=== PATIENT | male | born 1945 | race Caucasian/White ===

== ENCOUNTER 2017-07-04 09:37 | Outpatient (CLI) | payer MEDICARE, OTHER ==
--- NOTE | 2017-07-04 13:19 | RAD ---
EXAM: CHEST 2 VIEWS: HISTORY: Dyspnea. COMPARISON: 01/01/10. FINDINGS: Slight elongation of the aorta. Normal cardiac silhouette. Pulmonary vessels and hilum are normal. Costophrenic angles are clear. No consolidation or masses. No pneumothorax or osseous abnormalitie s. IMPRESSION: No acute cardiopulmonary process. POS: [facility]
== END 2017-07-04 09:38 | disposition home or self-care (01) ==
LOC: RAD 09:37
PROVIDERS: ATTEND Internal Medicine
DX: R06.00 Dyspnea, unspecified (principal)
CPT/HCPCS: 71020

== ENCOUNTER 2017-08-09 09:37 | Outpatient (CLI) | payer MEDICARE, OTHER ==
[2017-08-09] MEDS ORDERED: Iopamidol 370 76% 100 ML VIAL ONE (11:40)
--- NOTE | 2017-08-09 13:42 | CT ---
CT CHEST WITH CONTRAST: Clinical history: Cough, cardiac palpitations. FINDINGS: Mild subpleural opacification of the posterior left hemithorax favors minimal atelectasis. There is n o lobar consolidation, significant effusion, or pneumothorax. The tracheal bronchial air column is pa tent. There is vascular disease including dense coronary artery calcium. Mild pericardial fluid is pr esent. Thoracic lymph nodes are of normal size. Thoracic aorta is non-aneurysmal. Indeterminate hypod ensities seen at the left kidney. Incidental note of collateralized, contrast opacified vasculature o f the right periscapular region. There is osseous degenerative change. There is a tiny nodule which m ay arise from the left adrenal gland, too small to definitely characterize, on the magnitude of a few mm. IMPRESSION: 1. No lobar consolidation. 2. Hyperattenuation incompletely assessed involving left kidney as well as left adrenal region as dis cussed above. This could be further assessed with dedicated follow up CT of abdomen when clinically f easible. POS: [facility]
--- NOTE | 2017-08-17 15:36 | PFT ---
PATIENT HISTORY: HEIGHT: 68 IN WEIGHT: 229 SMOKER: Y HOW LON YRS PACKS PER DAY 1 PRODUCTIVE COUGH: LUNG DISEASE: PHYSICIAN INTERPRETATION FINAL REPORT: MILD REDUCTION OF EXPIRATORY FLOWS OF VITAL CAPACITY NO POST BRONCHODILATOR PFT DONE TOTAL LUNG CAPACITY LOW, RV NORMAL GAS TRANSFER IS NORMAL IMPRESSION: RESTRICTIVE PERMEABLE IMPAIRMENT NORMAL DIFFUSION CAPACITY Clip Wrapper: [employer] Specialist: FIGUEROA DOS SANTOS
== END 2017-08-09 09:38 | disposition home or self-care (01) ==
LOC: CP 09:37
PROVIDERS: ATTEND Internal Medicine
DX: R05 Cough (principal); R00.2 Palpitations; R93.8 Abnormal findings on diagnostic imaging of other specified body structures
CPT/HCPCS: 71260; 94010; 94727; 94729

== ENCOUNTER 2017-09-26 11:24 | Inpatient (IN) | payer MEDICARE, OTHER ==
[2017-09-26 11:47] LABS: #Basophils 0.1 thou/uL (0.0-0.2); #Eosinphils 0.1 thou/uL (0.0-0.7); #Lymphocytes 2.1 thou/uL (1.20-3.40); #Monocytes 0.5 thou/uL (0.11-0.59); #Neutrophils 5.2 thou/uL (1.40-6.50); %Basophils 0.9 % (0.0-1.0); %Eosinophils 0.9 % (0.0-10.0); %Lymphocytes 26.8 % (21.0-51.0); %Monocytes 6.1 % (0.0-10.0); %Neutrophils 65.3 % (42.0-75.0); Hemoglobin 15.8 g/dL (14.0-18.0); Mean Corpuscular Hemoglobin 31.6 pg (27.0-31.0); Mean Corpuscular Volume 98.9 fl (80.0-94.0); Mean Platelet Volume 7.9 fL (7.4-10.4); Platelet Count 151 thou/uL (130-400); RBC Distribution Width 13.1 % (11.5-14.5); Red Blood Cell (RBC) Count 4.99 mill/uL (4.70-6.10)
[2017-09-26 12:09] LABS: PTT 32.9 SEC (22.9-36.1)
[2017-09-26 12:10] LABS: INR-International Normal Ratio 1.2
[2017-09-26] MEDS ORDERED: Enoxaparin Sodium 100 MG/ML SYRINGE SC SCH ×2 (12:15→22:30)
[2017-09-26] MEDS ORDERED: Diltiazem HCl 125 MG, Admixture Fee 1 EACH in Sodium Chloride 0.9% 100 ML IVPB SCH (12:15)
[2017-09-26 12:16] LABS: ALT (SGPT) 41 U/L (8-55); AST (SGOT) 25 U/L (5-34); Albumin 4.1 g/dL (3.4-4.8); Alkaline Phosphatase 64 U/L (40-150); Anion Gap 11 mmol/L (10-20); BUN (Urea Nitrogen) 16 mg/dL (8.4-25.7); Bilirubin, Total 2.6 mg/dL (0.2-1.2); CK (CPK) 126 U/L (30-200); Calc. Creatinine Clearance 0 mL/min (70-130); Calcium 9.2 mg/dL (7.8-10.44); Carbon Dioxide 25 mmol/L (23-31); Chloride 109 mmol/L (98-107); Estimated GFR-MDRD Greater than 90; Globulin 2.7 g/dL (2.4-3.5); Glucose 103 mg/dL (83-110); Potassium 4.1 mmol/L (3.5-5.1); Protein, Total 6.8 g/dL (5.8-8.1); Sodium 141 mmol/L (136-145)
[2017-09-26 12:18] LABS: Troponin I Less than 0.010 ng/mL (< 0.028)
[2017-09-26] MEDS ORDERED: Enoxaparin Sodium 100 MG/ML SYRINGE ONE (12:27)
--- NOTE | 2017-09-26 12:42 | RAD ---
PORTABLE CHEST 1 VIEW: DATE: 09/26/17. TIME: 11:29 a.m. HISTORY: Tachycardia. FINDINGS: The heart size appears prominent. The lungs are expanded without confluent areas of consolidation, p neumothorax, kt pulmonary edema, or pleural effusions. No significant interval change is seen sin ce the exam of 07/04/17. IMPRESSION: No acute process. POS: [facility]
[2017-09-26] MEDS ORDERED: Bisacodyl 5 MG TAB PO PRN (15:25)
[2017-09-26] MEDS ORDERED: Acetaminophen 325 MG TAB PO PRN (15:25)
[2017-09-26 15:50] LABS: Troponin I 0.022 ng/mL (< 0.028)
[2017-09-26] MEDS ORDERED: Metoprolol Tartrate 5 MG/5 ML VIAL ONE (16:01)
[2017-09-26 16:07] LABS: CKMB 1.9 ng/mL (0-6.6); Troponin I Less than 0.010 ng/mL (< 0.028)
[2017-09-26] MEDS ORDERED: Digoxin 0.5 MG/2 ML AMP SLOW IVP SCH ×2 (16:30→17:00)
--- NOTE | 2017-09-26 18:00 | HP ---
PRIMARY CARE PHYSICIAN: SHANNON Vee. She is actually an advanced practitioner nurse. CHIEF COMPLAINT: Atrial fibrillation, rapid ventricular response. HISTORY OF PRESENT ILLNESS: Patient is a very pleasant 72-year-old male who was sent from Dr. Encarnacion 's office for atrial fibrillation with RVR. The patient stated that for the past couple of weeks, he has been feeling abdominal bloating, has been having some nausea and on occasion has felt his heartb eat go really fast; however, it lasted for about 10 to 15 minutes and goes back to his baseline. Marcelina thorpe stated that the palpitations he has been having for the past six months on and off; however, for the past 2 weeks, he has been having significant amount of abdominal bloating, discomfort, pain afte r eating and just increasing amount of palpitations. Patient denies any chest discomfort or chest pa in. He is able to carry out his normal activities without any issues. PAST MEDICAL HISTORY: Hyperlipidemia. MEDICATIONS: Aspirin 81 mg, Crestor, unknown dose daily. PAST SURGICAL HISTORY: None. ALLERGIES: None. FAMILY HISTORY: Mother had a bypass at the age of 70. Father had a stent placed in, I believe in th e age of 70s. Maternal grandmother at the age of 50s with heart disease. He has 3 brothers, wh ich are in good health. SOCIAL HISTORY: Patient drinks six cans ranging from 2-6 cans a day. He smokes a pack a day for the past 50 years. Denies any drug use. REVIEW OF SYSTEMS: Ten-point review of systems, all negative except for the one mentioned above. PHYSICAL EXAMINATION: VITAL SIGNS: The patient is afebrile at 98.8, blood pressure 125/60, his heart rate is still in the one teens to 120s to 140s, respirations are 12, and his oxygen saturation is 99% on room air. GENERAL: He is awake, alert, oriented x3. Does appear a little flush than his baseline according to his . CARDIOVASCULAR: Irregularly irregular, tachycardia right now. LUNGS: Clear to auscultation. No rhonchi, wheezes noted. ABDOMEN: Soft, nontender. Bowel sounds are present x2. However, abdomen is significantly obese. EXTREMITIES: No pitting edema noted. LABORATORY DATA: WBCs of 8.0, hemoglobin of 15.8, hematocrit of 49.3, platelets of 151. Sodium is 1 41, potassium of 4.1, creatinine of 0.81. His EKG shows in atrial fibrillation with RVR. Troponins are negative. TSH is 2.2. Chest x-ray: No acute process noted. ASSESSMENT AND PLAN: The patient is a very pleasant 72-year-old male who was sent from [facility] for being in atrial fibrillation with rapid ventricular response. 1. Atrial fibrillation with rapid ventricular response. Patient currently is on Cardizem 10 mg and received 20 mg IV bolus in the ER prior to starting the drip. His rate is still uncontrolled in the 140s to 150s. However, the patient is currently asymptomatic. The patient has been given 5 mg of Lo pressor without any change in his heart rate. We will digoxin load the patient. We will also check an echocardiogram. Of course, Dr. Encarnacion will be consulted. 2. Smoking. Patient was educated on smoking cessation. Denies use of nicotine patch. 3. Alcohol abuse. Patient drinks six cans ranging from 2-6 cans a day. Patient currently does not want to quit. 4. Abdominal bloating. We will try patient on Pepcid b.i.d.
[2017-09-26 18:41] VITALS: BMI 34.7
[2017-09-26 19:23] LABS: Troponin I Less than 0.010 ng/mL (< 0.028)
[2017-09-26] MEDS: Metoprolol Tartrate 25 MG TAB PO SCH (22:49)
[2017-09-26] MEDS: Famotidine/PF 20 mg/2ml Vial SLOW IVP SCH (22:49)
[2017-09-27 05:46] LABS: Eosinophils 2 % (0-10); Hemoglobin 14.4 g/dL (14.0-18.0); Lymphocytes 37 % (21-51); MDiff Complete? YES; Mean Corpuscular HGB CONC 31.3 g/dL (32.0-36.0); Mean Corpuscular Hemoglobin 32.4 pg (27.0-31.0); Mean Platelet Volume 8.9 fL (7.4-10.4); Monocytes 2 % (0-10); Neutrophil 59 % (42-75); Platelet Count 142 thou/uL (130-400); RBC Distribution Width 13.3 % (11.5-14.5); Red Blood Cell (RBC) Count 4.45 mill/uL (4.70-6.10); White Blood Cell (WBC) Count 8.7 thou/uL (4.8-10.8)
[2017-09-27 05:53] LABS: ALT (SGPT) 34 U/L (8-55); AST (SGOT) 22 U/L (5-34); Albumin 3.7 g/dL (3.4-4.8); Alkaline Phosphatase 59 U/L (40-150); Anion Gap 9 mmol/L (10-20); BUN (Urea Nitrogen) 16 mg/dL (8.4-25.7); Bilirubin, Total 2.4 mg/dL (0.2-1.2); Calc. Creatinine Clearance 124 mL/min (70-130); Calcium 8.7 mg/dL (7.8-10.44); Carbon Dioxide 23 mmol/L (23-31); Chloride 108 mmol/L (98-107); Estimated GFR-MDRD Greater than 90; Globulin 2.5 g/dL (2.4-3.5); Glucose 107 mg/dL (83-110); Protein, Total 6.2 g/dL (5.8-8.1); Sodium 136 mmol/L (136-145)
[2017-09-27] MEDS: Metoprolol Tartrate 25 MG TAB PO SCH (08:32)
[2017-09-27] MEDS: Enoxaparin Sodium 100 MG/ML SYRINGE SC SCH ×2 (08:32→22:40)
[2017-09-27] MEDS ORDERED: Prevnar 13-Val Conj/PF 0.5 ML SYRINGE IM ONE (09:00)
[2017-09-27] MEDS ORDERED: Metoprolol Tartrate 25 MG TAB PO SCH ×2 (09:00→09:30)
--- NOTE | 2017-09-27 09:41 | PRG ---
DATE OF SERVICE: 09/27/2017 SUBJECTIVE: Mr. Montes is doing okay today. No chest pain or pressure. His heart rate is still fa st at about 130 beats a minute. OBJECTIVE: LUNGS: Clear. CARDIAC: Irregularly irregular. ABDOMEN: Soft, nontender. EXTREMITIES: No edema. SKIN: Warm and dry. LABORATORY DATA: Reviewing the tests, the echocardiogram is pending. On chest x-ray, the heart size looks enlarged. There is no pulmonary edema. The cardiac enzymes peaked 0.022 all normal. Bilirubin was high at 2.6. ASSESSMENT: Atrial fibrillation with a rapid ventricular response, difficult to control the rate. PLAN: 1. Increase beta blockers. 2. Echocardiogram. 3. Proceed to a transesophageal echo and cardioversion tomorrow, still in fibrillation which is like ly he will be. Discussed including injuring the mouth and teeth, stroke, heart attack. He understan ds and wishes to proceed. He understands also that living in fibrillation long-term would not be a g ood option, as it is very difficult to control his rate. There is also a risk of fibrillation causin g strokes if we leave him in fibrillation. The long-term risk of stroke we will be mostly reduced by the anticoagulation.
[2017-09-27] MEDS ORDERED: Lorazepam 2 MG/ML VIAL SLOW IVP PRN (11:15)
[2017-09-27] MEDS: Famotidine/PF 20 mg/2ml Vial SLOW IVP SCH ×2 (11:33→22:40)
--- NOTE | 2017-09-27 12:04 | PDOC.PN ---
- Subjective Encounter Start Date: 09/27/17 Encounter Start Time: 12:03 CC: AFIB Sub: pt still c/o palpitations - Objective Resuscitation Status: Resuscitation Status FULL:Full Resuscitation Vital Signs & Weight: Vital Signs (12 hours) Temp Pulse Resp BP Pulse Ox 09/27/17 04:00 97.8 F 81 18 109/69 93 L Weight Weight 230 lb 14.4 oz I&O: 09/26/17 09/27/17 09/28/17 06:59 06:59 06:59 Intake Total 892 Output Total 200 Balance 692 Result Diagrams: 09/27/17 04:25 09/27/17 04:25 Phys Exam - Physical Examination Constitutional: NAD HEENT: moist MMs Neck: no nodes Respiratory: no wheezing, no rales, clear to auscultation bilateral Cardiovascular: no significant murmur, no rub, irregular positive tachy Gastrointestinal: soft, non-tender no guarding Musculoskeletal: no edema Neurological: non-focal, moves all 4 limbs Psychiatric: normal affect Skin: no rash Dx/Plan - Plan Pt is 72 yrs old male now admitted to hospital due to afib rvr 1. AFIB RVR: Cardio on board Monitor HR closely JUSTUS & Cardioversion today per cardi 2. H/O Alcohol abuse: will start thiamine, folic acid PRNB ativant 3. Nicotine abuse: PRN nicotine patch 4. Pain: PRN pain meds case d/w pt & RN
[2017-09-27] MEDS: Nicotine 14 MG PATCH TOP SCH (13:15)
[2017-09-27] MEDS: Diltiazem HCl 125 MG, Admixture Fee 1 EACH in Sodium Chloride 0.9% 100 ML IVPB SCH (13:15)
[2017-09-27] MEDS: Metoprolol Tartrate 50 MG TAB PO SCH ×2 (13:16→22:40)
[2017-09-27] MEDS: Amiodarone 200 MG TAB PO SCH ×2 (15:12→22:40)
[2017-09-27] MEDS: Multivitamins, Adult 10 ML, Folic Acid 1 MG, Thiamine HCl 100 MG in Dextrose 5 %-0.45 %... IV SCH ×4 (16:09)
[2017-09-28] MEDS: Diltiazem HCl 125 MG, Admixture Fee 1 EACH in Sodium Chloride 0.9% 100 ML IVPB SCH (00:34)
[2017-09-28] MEDS ORDERED: Ondansetron ODT 4 MG TAB PO PRN (06:30)
[2017-09-28] MEDS: Famotidine/PF 20 mg/2ml Vial SLOW IVP SCH (08:32)
[2017-09-28] MEDS: Amiodarone 200 MG TAB PO SCH ×3 (08:32→20:50)
[2017-09-28] MEDS: Metoprolol Tartrate 50 MG TAB PO SCH ×2 (08:32→20:50)
[2017-09-28] MEDS: Enoxaparin Sodium 100 MG/ML SYRINGE SC SCH ×2 (08:32→20:50)
[2017-09-28] MEDS ORDERED: Diltiazem HCl 125 MG, Admixture Fee 1 EACH in Sodium Chloride 0.9% 100 ML IVPB SCH ×2 (09:27→09:45)
--- NOTE | 2017-09-28 09:38 | PRG ---
DATE OF SERVICE: 09/28/2017 SUBJECTIVE: Mr. Montes is feeling better today, no chest pain or pressure. His heart rate is duarte r controlled, it is in the 90s now. PHYSICAL EXAMINATION: LUNGS: Clear. CARDIAC: Irregular, irregular. ABDOMEN: Soft, nontender. EXTREMITIES: There is no edema. Echocardiogram showed ejection fraction 25-30%. ASSESSMENT: 1. Congestive heart failure, systolic, likely acute on chronic, likely related to prolonged tachycar dorie. 2. Persistent atrial fibrillation, rate is beginning to improve. PLAN: 1. Reduce Cardizem dose. 2. Proceed to transesophageal echo and cardioversion tomorrow morning. I discussed risks including injury to the teeth, need for pacemaker insertion, stroke. He understands and wishes to proceed.
[2017-09-28] MEDS: Multivitamins, Adult 10 ML, Folic Acid 1 MG, Thiamine HCl 100 MG in Dextrose 5 %-0.45 %... IV SCH ×4 (12:02)
[2017-09-28] MEDS: Nicotine 14 MG PATCH TOP SCH (12:02)
--- NOTE | 2017-09-28 15:24 | PDOC.PN ---
- Subjective Encounter Start Date: 09/28/17 Encounter Start Time: 15:26 Subjective: Asymptomatic. No complaints. -: No acute events overnight. - Objective Resuscitation Status: Resuscitation Status FULL:Full Resuscitation MAR Reviewed: Yes Vital Signs & Weight: Vital Signs (12 hours) Temp Pulse Resp BP Pulse Ox 09/28/17 15:18 97.2 F L 98 14 118/87 91 L 09/28/17 11:03 97.6 F 89 14 144/70 H 90 L 09/28/17 08:00 97.8 F 116 H 16 90 L 09/28/17 07:56 97.8 F 116 H 16 146/77 H 90 L Weight Weight 230 lb 14.4 oz I&O: 09/27/17 09/28/17 09/29/17 06:59 06:59 06:59 Intake Total 892 2115 Output Total 200 200 Balance 692 1915 Result Diagrams: 09/27/17 04:25 09/27/17 04:25 Phys Exam - Physical Examination Constitutional: NAD HEENT: PERRLA, moist MMs, sclera anicteric Neck: no JVD, supple, full ROM Respiratory: no wheezing, no rales, no rhonchi, clear to auscultation bilateral Cardiovascular: no significant murmur, no rub, irregular Gastrointestinal: soft, non-tender, no distention, positive bowel sounds Musculoskeletal: pulses present, edema present Neurological: non-focal, moves all 4 limbs Psychiatric: normal affect, A&O x 3 Skin: no rash, normal turgor Dx/Plan (1) Atrial fibrillation with RVR Code(s): I48.91 - UNSPECIFIED ATRIAL FIBRILLATION Status: Acute Comment: Fairly well rate controlled. JUSTUS today and then cardioversion tomorrow. Continue metoprolol, wean off Diltiazem. (2) Alcohol abuse Code(s): F10.10 - ALCOHOL ABUSE, UNCOMPLICATED Status: Chronic Comment: Counseled on cessation. No signs of withdrawal. (3) Tobacco abuse Code(s): Z72.0 - TOBACCO USE Status: Acute Comment: Counseled on cessation. - Plan cont current plan of care * .
[2017-09-28] MEDS ORDERED: Promethazine HCl 25 MG/ML VIAL IM/IV PRN (16:50)
[2017-09-28] MEDS: Famotidine 20 MG TAB PO SCH (20:50)
[2017-09-29 00:24] LABS: Hemoglobin 14.5 g/dL (14.0-18.0); Platelet Count 126 thou/uL (130-400)
[2017-09-29] MEDS: Amiodarone 200 MG TAB PO SCH ×3 (08:02→20:48)
[2017-09-29] MEDS: Rosuvastatin 10 MG TAB PO SCH (08:02)
[2017-09-29] MEDS: Metoprolol Tartrate 50 MG TAB PO SCH (08:02)
[2017-09-29] MEDS: Famotidine 20 MG TAB PO SCH ×2 (08:02→20:48)
[2017-09-29] MEDS: Enoxaparin Sodium 100 MG/ML SYRINGE SC SCH ×2 (08:03→20:48)
[2017-09-29] MEDS: Aspirin 81 mg Enteric Coated Tablet PO SCH (08:03)
[2017-09-29] MEDS ORDERED: Diprivan 20 ML ONE (09:34)
[2017-09-29] MEDS ORDERED: PHENYLEPHRINE-NS 100 MCG/ML 10 ML SYRINGE ONE ×2 (10:11→16:59)
--- NOTE | 2017-09-29 10:56 | OP ---
DATE OF PROCEDURE: 09/29/2017 PROCEDURE PERFORMED: Cardioversion. INDICATION: Atrial fibrillation. DESCRIPTION OF PROCEDURE: The patient was brought to the post-cath area in the fasting state. Trans esophageal echo revealed no evidence of intracardiac thrombus. The patient was given 150 joules of d irect current energy synchronized and converted to sinus rhythm. CONCLUSION: Successful cardioversion.
--- NOTE | 2017-09-29 11:08 | ECHO ---
TRANSESOPHAGEAL ECHOCARDIOGRAM: DATE OF PROCEDURE: 09/29/17 INDICATION: 72-year-old gentleman with paroxysmal atrial fibrillation and a cardiomyopathy. DESCRIPTION OF PROCEDURE: The patient was taken to the PACU. The patient was sedated by anesthesiology. A transesophageal probe was placed in the distal esophagus and stomach. Echocardiographic images were obtained. The transesophageal probe was removed. FINDINGS: 1. Severe decrease in left systolic function. 2. The left ventricle is dilated. 3. Biatrial enlargement 4. Moderate mitral regurgitation. 5. Mild tricuspid regurgitation. 6. No thrombus in the left atrium or left atrial appendage. 7. Atherosclerotic debris in the descending aorta. IMPRESSION: No formed thrombus in the left atrium or left atrial appendage.
[2017-09-29] MEDS: Nicotine 14 MG PATCH TOP SCH (12:06)
[2017-09-29] MEDS: Multivitamins, Adult 10 ML, Folic Acid 1 MG, Thiamine HCl 100 MG in Dextrose 5 %-0.45 %... IV SCH ×4 (12:06)
--- NOTE | 2017-09-29 13:20 | PDOC.PN ---
- Subjective Encounter Start Date: 09/29/17 Encounter Start Time: 13:19 Subjective: Feels wel today. No acute events overnight - Objective Resuscitation Status: Resuscitation Status FULL:Full Resuscitation MAR Reviewed: Yes Vital Signs & Weight: Vital Signs (12 hours) Temp Pulse Resp BP Pulse Ox 09/29/17 11:39 97.7 F 61 16 100/67 98 09/29/17 08:00 97.5 F L 94 16 90 L 09/29/17 07:49 97.5 F L 94 16 126/83 90 L 09/29/17 04:00 104 H 20 116/89 92 L Weight Weight 232 lb I&O: 09/28/17 09/29/17 09/30/17 06:59 06:59 06:59 Intake Total 2115 2317.3 Output Total 200 400 Balance 1915 1917.3 Result Diagrams: 09/29/17 00:17 09/29/17 00:17 Phys Exam - Physical Examination Constitutional: NAD HEENT: PERRLA, moist MMs, sclera anicteric Neck: supple, full ROM Respiratory: no wheezing, no rales, no rhonchi, clear to auscultation bilateral Cardiovascular: RRR, no significant murmur, no rub Gastrointestinal: soft, non-tender, no distention, positive bowel sounds Musculoskeletal: no edema, pulses present Neurological: non-focal, moves all 4 limbs Psychiatric: normal affect, A&O x 3 Skin: no rash, normal turgor Dx/Plan (1) Atrial fibrillation with RVR Code(s): I48.91 - UNSPECIFIED ATRIAL FIBRILLATION Status: Acute Comment: Fairly well rate controlled. JUSTUS today and then cardioversion. Continue metoprolol. (2) Alcohol abuse Code(s): F10.10 - ALCOHOL ABUSE, UNCOMPLICATED Status: Chronic Comment: Counseled on cessation. No signs of withdrawal. (3) Tobacco abuse Code(s): Z72.0 - TOBACCO USE Status: Acute Comment: Counseled on cessation. - Plan cont current plan of care, DVT proph w/lovenox Likely discharge home tomorrow. * .
[2017-09-29] MEDS: Carvedilol 6.25 MG TAB PO SCH (16:03)
[2017-09-29] MEDS ORDERED: Propofol 200 MG/20 ML VIAL ONE (16:59)
[2017-09-30 07:37] VITALS: BP 121/77; TEMP 98.2
[2017-09-30] MEDS: Carvedilol 6.25 MG TAB PO SCH (08:07)
[2017-09-30] MEDS: Famotidine 20 MG TAB PO SCH (08:07)
[2017-09-30] MEDS: Aspirin 81 mg Enteric Coated Tablet PO SCH (08:07)
[2017-09-30] MEDS: Amiodarone 200 MG TAB PO SCH (08:07)
[2017-09-30] MEDS: Rosuvastatin 10 MG TAB PO SCH (08:07)
[2017-09-30] MEDS: Enoxaparin Sodium 100 MG/ML SYRINGE SC SCH (08:08)
[2017-09-30] MEDS ORDERED: Lisinopril 5 MG TAB PO SCH (09:00)
[2017-09-30] MEDS ORDERED: Amiodarone 200 MG TAB PO SCH (09:00)
[2017-09-30] MEDS ORDERED: Lisinopril 2.5 MG TAB PO SCH ×2 (09:00)
--- NOTE | 2017-09-30 09:31 | PRG ---
DATE OF SERVICE: 09/30/2017 SUBJECTIVE: Mr. Montes is feeling better today, no complaints. He is up and around. No chest pain or pressure. PHYSICAL EXAMINATION: VITAL SIGNS: Blood pressure 120/70, pulse 70 it is regular. LUNGS: Clear. CARDIAC: Normal S1, normal S2. ABDOMEN: Soft, nontender. EXTREMITIES: There is mild edema. PERTINENT LABORATORY DATA: Most recent potassium was 4.0. Bilirubin on admission was 2.6, it went t o 2.4 on the . The patient maintains sinus rhythm. Echocardiogram revealed ejection fraction improved to 35-40%. T here is moderate right ventricular enlargement, probably related to smoking, lung disease. ASSESSMENT: 1. Congestive heart failure, systolic, acute on chronic, improved. 2. Atrial fibrillation, maintaining sinus rhythm, on amiodarone. PLAN: 1. He is to go to home on Coreg 12.5 mg twice daily. 2. Amiodarone 200 mg twice a day for 2 weeks, then 200 mg 1 a day. 3. Eliquis 5 mg twice a day. 4. Stop aspirin. He bit his lips. He is having some oozing from his lips. 5. Lisinopril 5 mg a day. 6. Spironolactone 25 mg tablet half pill a day, dose to be increased later if tolerated. 7. He is also on Crestor. It is best to see us is in the office in a week. If he is doing well and his potassium is okay, I would probably increase the spironolactone to 25 mg a day. Long-term progn osis is guarded. He understands it is critical not to smoke.
--- NOTE | 2017-09-30 14:38 | DIS ---
DATE OF ADMISSION: 09/26/2017 DATE OF DISCHARGE: 09/30/2017 DISCHARGE DIAGNOSES: Atrial fibrillation with rapid ventricular response, alcohol abuse, tobacco abu se. HISTORY OF PRESENT ILLNESS/HOSPITAL COURSE: Mr. Simon Regan is a pleasant 72-year-old male who was sent from Dr. Encarnacion's office for atrial fibrillation with RVR. For the past 2 weeks, he wa s having abdominal bloating, nausea and occasional palpitations lasting for about 10-15 minutes and r eturning to his baseline. This has been going on for the past 6 months, but has been getting worse o f late. He denies chest discomfort or pain and he is able to carry out his usual activities without any issues. He was found to be profoundly tachycardic and EKG showed atrial fibrillation with RVR. He was immediately started on IV Cardizem and admitted for further management. Cardiology and Cardio vascular Surgery was consulted. He had a TTE and JUSTUS, which did not show any thrombus. An ablation was then proceeded, which was successful with the patient going back to normal sinus rhythm with a no rmal heart rate. He was discharged on Eliquis, carvedilol, lisinopril, statins and his other home me dications. PHYSICAL EXAMINATION: VITAL SIGNS: Temperature 98.2, pulse 72, respiratory rate 18, blood pressure 121/77. GENERAL: Not in acute distress, sitting comfortably in bed. HEENT: PERRLA. Moist mucous membrane. Not pale. Sclerae are anicteric. NECK: Supple with full range of movement. RESPIRATORY: No wheezing, rales or rhonchi. Clear to auscultation bilaterally. CARDIOVASCULAR: Regular rate and rhythm. No murmurs, rubs or gallops. GASTROINTESTINAL: Soft, nontender, nondistended with positive bowel sounds and no organomegaly. MUSCULOSKELETAL: No edema. Pulses present. NEUROLOGIC: Nonfocal. Moves all limbs spontaneously. Alert and oriented to time, place and person. PSYCHIATRIC: Normal mood and affect. SKIN: Warm and well perfused. No rashes or lesions. LABORATORY DATA: WBC 8.7, hemoglobin 14.5, platelet count 142,000. Sodium 136, potassium 4, chlorid e 108, carbon dioxide 23, anion gap 9, BUN 16, creatinine 0.81, glucose 107, calcium 8.7. IMAGING: TTE, JUSTUS, chest x-ray showed no acute process. PROCEDURES: Cardioversion. DIET: Heart healthy. CONSULT: Cardiology. DISCHARGE MEDICATIONS: Amiodarone 200 mg 3 times daily, carvedilol 12.5 mg twice a day, nicotine pat ch 14 mg every 24 hours, amiodarone, apixaban 5 mg twice daily, lisinopril 5 mg daily, spironolactone 12.5 mg every morning with breakfast, lovastatin 10 mg daily, aspirin 81 mg daily. CONDITION AT DISCHARGE: Stable and improved. ACTIVITY: To resume as tolerated. HEALTH CARE GOALS: He is to follow up with his primary care physician within 1 week of discharge. Discharge time, 65 minutes including chart review and documentation.
[2017-09-30] MEDS ORDERED: Apixaban 5 MG TAB PO SCH (18:00)
[2017-10-01] MEDS ORDERED: Spironolactone 25 MG TAB PO SCH (08:00)
== END 2017-09-30 10:32 | disposition home or self-care (01) | DRG 308 ==
LOC: ERS 11:24 → ERHOLD 14:49 → 2NO 18:11
PROVIDERS: ADMIT Internal Medicine; ATTEND Internal Medicine
PROC: 5A2204Z Restoration of Cardiac Rhythm, Single (ICD-10-PCS; principal; 2017-09-29)
DX: I48.1 Persistent atrial fibrillation (principal); I50.23 Acute on chronic systolic (congestive) heart failure; E78.5 Hyperlipidemia, unspecified; F17.210 Nicotine dependence, cigarettes, uncomplicated; F10.10 Alcohol abuse, uncomplicated; R14.0 Abdominal distension (gaseous); Z79.82 Long term (current) use of aspirin; Z79.899 Other long term (current) drug therapy
CPT/HCPCS: 36415; 71045; 80053; 82553; 82565; 84443; 84484; 85007; 85014; 85018; 85025; 85027; 85049; 85610; 85730; 90471; 90670; 92960; 93005; 93306; 93312; 96365; 96366; 96372; 96375; 96376; A4216; G0009; J1650; J2060; J2550; J2704; J3411; J7042; J7050; Q0162; S0028

== ENCOUNTER 2017-10-05 10:04 | Inpatient (IN) | payer MEDICARE, OTHER ==
--- NOTE | 2017-10-05 10:54 | RAD ---
CHEST 1 VIEW: HISTORY: Chest pain. COMPARISON: Chest radiograph 09/26/17. FINDINGS: Mild pulmonary venous congestion. Cardiomegaly. Well-defined density is present projecting over the right lower lobe. IMPRESSION: 1. Cardiomegaly. 2. Mild pulmonary venous congestion. 3. Nodular density projecting in the right lung base new from the 09/08/[address] This may r epresent a focal areas of consolidation. Followup recommended. POS: [facility]
[2017-10-05 10:57] LABS: #Eosinphils 0.1 thou/uL (0.0-0.7); #Lymphocytes 0.8 thou/uL (1.20-3.40); #Monocytes 0.4 thou/uL (0.11-0.59); %Lymphocytes 14.9 % (21.0-51.0); %Monocytes 8.1 % (0.0-10.0); Hemoglobin 14.9 g/dL (14.0-18.0); Mean Corpuscular HGB CONC 32.4 g/dL (32.0-36.0); Mean Corpuscular Hemoglobin 31.3 pg (27.0-31.0); Mean Corpuscular Volume 96.4 fl (80.0-94.0); Mean Platelet Volume 7.6 fL (7.4-10.4); Platelet Count 134 thou/uL (130-400); Red Blood Cell (RBC) Count 4.77 mill/uL (4.70-6.10); White Blood Cell (WBC) Count 5.3 thou/uL (4.8-10.8)
[2017-10-05 11:18] LABS: ALT (SGPT) 53 U/L (8-55); AST (SGOT) 32 U/L (5-34); Albumin 3.8 g/dL (3.4-4.8); Alkaline Phosphatase 61 U/L (40-150); Anion Gap 10 mmol/L (10-20); BUN (Urea Nitrogen) 12 mg/dL (8.4-25.7); Bilirubin, Total 1.6 mg/dL (0.2-1.2); Calc. Creatinine Clearance 0 mL/min (70-130); Calcium 9.2 mg/dL (7.8-10.44); Carbon Dioxide 29 mmol/L (23-31); Chloride 106 mmol/L (98-107); Estimated GFR-MDRD Greater than 90; Globulin 2.5 g/dL (2.4-3.5); Glucose 109 mg/dL (83-110); Potassium 3.8 mmol/L (3.5-5.1); Protein, Total 6.3 g/dL (5.8-8.1); Sodium 141 mmol/L (136-145)
[2017-10-05 11:23] LABS: CKMB 1.6 ng/mL (0-6.6); Troponin I Less than 0.010 ng/mL (< 0.028)
[2017-10-05] MEDS ORDERED: Diltiazem HCl 125 MG, Admixture Fee 1 EACH in Sodium Chloride 0.9% 100 ML IVPB SCH (13:30)
--- NOTE | 2017-10-05 14:03 | HP ---
PRIMARY CARE PROVIDER: Dr. Tatiana Mckeon CHIEF COMPLAINT: Patient referred to [facility] for palpitations. HISTORY OF PRESENT ILLNESS: The patient was recently in the hospital for atrial fibrillation, was ca rdioverted on 10/05/2017, was discharged from the hospital in sinus rhythm on loading dose of amiodar one. Last night he noticed palpitations. He has had no change in his basic shortness of breath. No orthopnea, no paroxysmal nocturnal dyspnea. No cough, fever or chills. PAST MEDICAL HISTORY: Atrial fibrillation, acute onset 09/25/2017, dyslipidemia, cardiomyopathy with an EF of 25-30%. CURRENT MEDICATIONS: He has been taking amiodarone 200 mg twice a day. There is some confusion whet her it should be 2 or 3 times a day, Coreg 12.5 mg twice a day, Eliquis 5 mg twice a day, lisinopril 5 mg a day, spironolactone 12.5 mg a day, Crestor 10 mg a day. ALLERGIES: No known drug allergies. PAST SURGICAL HISTORY: None. FAMILY HISTORY: Mother had a bypass at age 70. Father had a stent placed at about age 70. Maternal grandmother at age 50 of heart disease. He has 3 brothers who are all in good health. SOCIAL HISTORY: He drinks up to 6 cans of beer a day. He smokes a pack a day for the past 50 years. Denies drug abuse. CODE STATUS: Full code status. at bedside, next of kin. REVIEW OF SYSTEMS: GENERAL: No headaches, dizziness or fainting. EYES: No double vision, blurred vision, flashing lights. ENT: No ear pain or drainage. No nasal bleeding. No trouble swallowing. CARDIAC: No chest pain, orthopnea or paroxysmal nocturnal dyspnea. RESPIRATORY: Some stable dyspnea on exertion. No cough or wheezing. GASTROINTESTINAL: No nausea, vomiting, abdominal pain, diarrhea or constipation. GENITOURINARY: No hematuria, dysuria. He states he did have some frequency last night. MUSCULOSKELETAL: Some mild swelling in his legs. No pain. NEUROLOGIC: No strokes, seizures, focal weakness. PSYCHIATRIC: No anxiety or depression. SKIN: No bruising, bleeding or rash. HEME/LYMPH: No tender or swollen lymph nodes in axilla, inguinal or cervical area. PHYSICAL EXAMINATION: GENERAL: He is an alert, oriented, cooperative, does not make eye contact. VITAL SIGNS: Blood pressure ranges from 109/78 to 133/105, pulse ranges from 100 to 136. The last t ann I examined him a few minutes ago it was 117 and irregular, respirations 20. He is on a room air with 93% saturation. HEENT: Examination of his head, eyes, ears, nose and throat reveal pupils equal, round, reactive. E xtraocular movements are intact. Sclerae white. Tympanic membranes clear. Nose is clear. Oral muc ous membranes are wet. Dental hygiene is good. NECK: Supple, without jugular venous distention, adenopathy or thyromegaly. CHEST: Some very minimal expiratory wheezes, some decreased breath sounds. No focal findings. HEART: Rapid irregular, irregular rhythm, variable first and second heart sounds, no murmurs or gall ops. ABDOMEN: Soft, bowel sounds are normal. No hepatosplenomegaly, no mass, no rebound. EXTREMITIES: Reveal no cyanosis, clubbing or edema. PULSES: Carotid, radial, femoral, and dorsalis pedis pulses are intact. SKIN: Warm and dry without bruises or rash. HEME/LYMPHATIC: No tender or swollen lymph nodes in axilla, inguinal or cervical area. NEUROLOGICAL: Cranial nerves II-XII are intact. Moves all extremities. Deep tendon reflexes intact . X-RAY FINDINGS: EKG atrial fibrillation with rapid ventricular response, nonspecific T-wave abnormal ity, reviewed by me. Chest x-ray: No cardiomegaly or pulmonary edema. There is an area in the righ t lower lobe with patchy density not previously seen. LABORATORY DATA: Comp metabolic profile normal except for a bilirubin of 1.6, troponin 0.010. BNP 7 66. CBC is unremarkable. ADMITTING DIAGNOSES: 1. Recurrent atrial fibrillation with rapid ventricular response. 2. Cardiomyopathy. 3. Tobacco abuse. 4. Dyslipidemia. PLAN: Continue Eliquis, 15 mg of IV Cardizem has been given. He has been put on an infusion at 5. He will be moved to telemetry. His home medicines will be continued. Dr. Jeovanny Encarnacion will be cons ulted.
[2017-10-05 14:24] LABS: Troponin I Less than 0.010 ng/mL (< 0.028)
[2017-10-05] MEDS ORDERED: Acetaminophen 325 MG TAB PO PRN (14:37)
[2017-10-05] MEDS ORDERED: Ondansetron HCl/PF 4 MG/2 ML Vial IVP PRN (14:37)
[2017-10-05] MEDS ORDERED: Zolpidem Tartrate 5 MG TAB PO PRN (14:37)
[2017-10-05 15:03] VITALS: BMI 33.2
--- NOTE | 2017-10-05 16:25 | CON ---
DATE OF CONSULTATION: 10/05/2017 PRIMARY BRAZER FURNACE: Dr. Jeovanny Encarnacion. REASON FOR CONSULTATION: Recurrent atrial fibrillation. HISTORY OF PRESENT ILLNESS: Mr. Montes is a very pleasant 72-year-old gentleman who is a patient of Dr. Jeovanny Encarnacion. He was seen and evaluated for a cardioversion last week. He has been on amiodar one therapy in addition to Eliquis. He states he was cardioverted then over the weekend noticed his heart was elevated. He had no symptoms of chest pain, pressure, shortness of breath, lightheadedness , dizziness, syncope, or presyncope. He proceed to the emergency room where his heart rate is felt t o be elevated. He was subsequently admitted and placed on IV Cardizem. PAST MEDICAL HISTORY: Atrial fibrillation, hyperlipidemia, cardiomyopathy with LVEF 25% to 30%. ALLERGIES: None. FAMILY HISTORY: Positive for CAD. SOCIAL HISTORY: Positive alcohol use and smoking, no drug use. MEDICATIONS: Include amiodarone, Eliquis, Crestor, Coreg, lisinopril, spironolactone. REVIEW OF SYSTEMS: A 10-point review of systems is reviewed and is as above, negative. PHYSICAL EXAMINATION: VITAL SIGNS: Blood pressure is 137/101, pulse 119, temperature 98.2. GENERAL: Patient is a pleasant male who is in no acute distress. The patient appears his stated age . NEUROLOGIC: The patient is alert and oriented times 3 with no focal neurologic deficits. HEENT: Sclerae without icterus. Mouth has moist mucous membranes with normal pallor. NECK: No JVD. Carotid upstroke brisk. No bruits bilaterally. LUNGS: Clear to auscultation with unlabored respirations. BACK: No scoliosis or kyphosis. CARDIAC: Irregular regular. ABDOMEN: Soft, nontender, nondistended. No peritoneal signs present. No hepatosplenomegaly. No ab normal striae. EXTREMITIES: 2+ femoral and 2+ dorsalis pedis pulses. No cyanosis, clubbing, or edema. SKIN: No gross abnormalities. PERTINENT LABORATORY DATA: Hemoglobin 14.9, total bilirubin 1.6. BNP of 766. IMPRESSION: 1. Recurrent atrial fibrillation. 2. Cardiomyopathy. 3. Tobacco abuse. 4. Alcohol abuse. RECOMMENDATIONS: Continue IV Cardizem for rate control. He is currently on beta catracho therapy as well. We will increase Coreg to t.i.d. dosing. May consider p.o. Cardizem in place of IV Cardizem. May consult with EP for further recommendations. Otherwise, further recommendations per Dr. Jeovanny Encarnacion in a.m.
[2017-10-05] MEDS ORDERED: Carvedilol 6.25 MG TAB PO SCH (17:00)
[2017-10-05] MEDS ORDERED: Diltiazem 125 MG in Sodium Chloride 0.9% 100 ML IVPB SCH (17:30)
[2017-10-05] MEDS ORDERED: Amiodarone 200 MG TAB PO SCH (17:45)
--- NOTE | 2017-10-05 20:00 | RAD ---
CHEST TWO VIEWS 10/05/17 HISTORY: Right lung base nodule. Additional views. COMPARISON: Earlier single view exam on the same date. FINDINGS: Cardiac silhouette is enlarged. Pulmonary vasculature is upper limits of normal. Nodular densities pr ojecting over the right base persists on the frontal view of this exam, although they are not well lo calized on the lateral view, potentially overlying the mid lung base. Left lung is clear. No pleural fluid or pneumothorax. IMPRESSION: Persistent subtle parenchymal opacities at the right lung base. Given the rapid appearance from the exam, an inflammatory process rather than neoplasm is favored. Please consider radiographic fol lowup after medical treatment to evaluate for clearing. POS: [facility]
[2017-10-05] MEDS: Amiodarone 200 MG TAB PO SCH (20:08)
[2017-10-05] MEDS: Apixaban 5 MG TAB PO SCH (20:09)
[2017-10-05] MEDS: Carvedilol 25 MG TAB PO SCH (20:09)
[2017-10-05 21:04] LABS: Hemoglobin 14.6 g/dL (14.0-18.0); Platelet Count 137 thou/uL (130-400)
[2017-10-05 21:22] LABS: Calc. Creatinine Clearance 127 mL/min (70-130); Estimated GFR-MDRD Greater than 90
[2017-10-06 04:39] VITALS: TEMP 98.3
[2017-10-06 05:34] LABS: #Eosinphils 0.1 thou/uL (0.0-0.7); #Lymphocytes 1.7 thou/uL (1.20-3.40); #Monocytes 0.5 thou/uL (0.11-0.59); #Neutrophils 4.6 thou/uL (1.40-6.50); %Basophils 0.5 % (0.0-1.0); %Eosinophils 1.7 % (0.0-10.0); %Monocytes 7.3 % (0.0-10.0); %Neutrophils 66.5 % (42.0-75.0); Hemoglobin 14.4 g/dL (14.0-18.0); Mean Corpuscular HGB CONC 33.3 g/dL (32.0-36.0); Mean Corpuscular Hemoglobin 32.2 pg (27.0-31.0); Mean Corpuscular Volume 96.6 fl (80.0-94.0); Mean Platelet Volume 8.7 fL (7.4-10.4); Platelet Count 152 thou/uL (130-400); RBC Distribution Width 13.2 % (11.5-14.5); Red Blood Cell (RBC) Count 4.48 mill/uL (4.70-6.10); White Blood Cell (WBC) Count 6.9 thou/uL (4.8-10.8)
[2017-10-06 05:57] LABS: Anion Gap 11 mmol/L (10-20); BUN (Urea Nitrogen) 10 mg/dL (8.4-25.7); Calc. Creatinine Clearance 116 mL/min (70-130); Calcium 8.9 mg/dL (7.8-10.44); Carbon Dioxide 26 mmol/L (23-31); Chloride 104 mmol/L (98-107); Estimated GFR-MDRD Greater than 90; Glucose 78 mg/dL (83-110); Potassium 4.2 mmol/L (3.5-5.1); Sodium 137 mmol/L (136-145)
[2017-10-06] MEDS ORDERED: Spironolactone 25 MG TAB PO SCH (08:00)
[2017-10-06] MEDS ORDERED: Rosuvastatin 10 MG TAB PO SCH (09:00)
[2017-10-06] MEDS ORDERED: Aspirin 81 mg Enteric Coated Tablet PO SCH (09:00)
[2017-10-06] MEDS ORDERED: Lisinopril 5 MG TAB PO SCH (09:00)
[2017-10-06] MEDS ORDERED: Amiodarone 200 MG TAB PO SCH ×4 (09:30→21:00)
[2017-10-06] MEDS: Apixaban 5 MG TAB PO SCH (10:28)
--- NOTE | 2017-10-06 11:13 | PDOC.PN ---
- Subjective Encounter Start Date: 10/06/17 Encounter Start Time: 11:11 Mr. Montes was seen today in follow-up of recurrent AFIB. He says he feels fine today. He denies feeling any dizziness of lightheaded. He denies chest pain or shortness of breath. - Objective Resuscitation Status: Resuscitation Status FULL:Full Resuscitation MAR Reviewed: Yes Vital Signs & Weight: Vital Signs (12 hours) Temp Pulse Resp BP Pulse Ox 10/06/17 04:00 98.3 F 58 L 20 116/72 93 L Weight Weight 218 lb 11.2 oz I&O: 10/05/17 10/06/17 10/07/17 06:59 06:59 06:59 Intake Total 480 Balance 480 Result Diagrams: 10/06/17 04:12 10/06/17 04:12 Phys Exam - Physical Examination HEENT: PERRLA Respiratory: no rales + occasional rhonchi, Cardiovascular: RRR, no significant murmur, no rub Gastrointestinal: soft, non-tender, positive bowel sounds Musculoskeletal: edema present trace pedal edema Dx/Plan (1) Atrial fibrillation with RVR Code(s): I48.91 - UNSPECIFIED ATRIAL FIBRILLATION Status: Acute Comment: Fairly well rate controlled. JUSTUS today and then cardioversion. Continue metoprolol. (2) Tobacco abuse Code(s): Z72.0 - TOBACCO USE Status: Acute Comment: Counseled on cessation. (3) Alcohol abuse Code(s): F10.10 - ALCOHOL ABUSE, UNCOMPLICATED Status: Chronic Comment: Counseled on cessation. No signs of withdrawal. - Plan * AFIB with RVR- patient has converted to sinus, and is a bit bradycardic, but asymptomatic * Continue amiodarone and Eliquis * Carvediolol dose has been decreased to 6.25 * Disposition as per Cardiology.
[2017-10-06] MEDS: Amiodarone 200 MG TAB PO SCH (11:14)
[2017-10-06] MEDS: Carvedilol 25 MG TAB PO SCH (11:14)
--- NOTE | 2017-10-06 14:04 | PRG ---
DATE OF SERVICE: 10/06/2017 SUBJECTIVE: Mr. Montes is doing better today, he converted to sinus bradycardia this morning. He r eceived amiodarone at a higher dose yesterday, but it was held this morning, his heart rate is still 50. He feels well; however. PHYSICAL EXAMINATION: VITAL SIGNS: His most recent blood pressure was 116/72 but earlier than that it was 137/101, the pul se is 50. LUNGS: Clear. CARDIAC: Normal S1, normal S2. ABDOMEN: Soft, nontender. PERTINENT LABORATORY: The potassium this morning was 4.2. The BNP yesterday 766. ASSESSMENT: 1. Congestive heart failure, systolic, diastolic mixed. Most recent ejection fraction 35-40% prior to being discharged last admission. The ejection fraction was much lower when he was in atrial fibri llation with a rapid rate, but it was over 35% in sinus rhythm. 2. Mild sinus bradycardia. 3. History of hypertension. 4. Mild chronic obstructive pulmonary disease based on pulmonary function test earlier this year. 5. Oxygen saturation 94% room air. PLAN: 1. We will reduce amiodarone to 200 mg twice a day. 2. Reduce Coreg to 3.125 mg twice daily. 3. Increase lisinopril to 10 mg daily, spironolactone 12.5 mg a day. He will see us in the office next week. If he has recurrent bradycardia he may need pacemaker insert ion versus trying to proceed to atrial fibrillation ablation. At some point will probably need atria l fibrillation ablation. However, if the patient goes into fibrillation, he does not tolerate it marya y well. Initially, his heart rate was 150. When he had atrial fibrillation on this occasion it was 110-120 and sometimes 130 even on amiodarone, but he has only been on it a short time.
[2017-10-06] MEDS ORDERED: Carvedilol 6.25 MG TAB PO SCH (17:00)
[2017-10-06 17:02] VITALS: BP 136/66
--- NOTE | 2017-10-07 02:00 | DIS ---
PRIMARY CARE PHYSICIAN: SHANNON Vee DATE OF ADMISSION: 10/05/2017 DATE OF DISCHARGE: 10/06/2017 DISCHARGE DISPOSITION: Home. PRIMARY DISCHARGE DIAGNOSES: 1. Atrial fibrillation with rapid ventricular response. 2. Dyslipidemia. 3. Cardiomyopathy with an ejection fraction of 25%-30%. DISCHARGE MEDICATIONS: Include amiodarone 200 mg twice daily, Eliquis 5 mg twice a day, carvedilol w as decreased to 3.125 mg twice a day, aspirin 81 mg daily, lisinopril 10 mg daily, Crestor 10 mg sera y, and Aldactone 12.5 mg daily. CODE STATUS: FULL CODE. ALLERGIES: No known drug allergies. HOSPITAL COURSE: Mr. Montes is a pleasant 72-year-old gentleman who presented to the emergency room after he experienced some palpitations. He was recently discharged from the hospital, actually a da y prior to admission after he was cardioverted out of atrial fibrillation. He was given a loading do se of amiodarone and sent home. He had the palpitations the night before admission and was admitted. He was briefly on a Cardizem drip and then converted to sinus rhythm. He did have some bradycardia after he converted and for this reason, the dose of carvedilol was decreased and he was instructed t o follow up with Dr. Encarnacion in 1-2 weeks. If he continues to have recurrence of atrial fibrillation, then there may be some consideration for ablation in the future; however, this episode was very brie f and hopefully, he will remain in sinus rhythm in the future.
[2017-10-07] MEDS ORDERED: Carvedilol 3.125 MG TAB PO SCH (09:00)
[2017-10-07] MEDS ORDERED: Lisinopril 10 MG TAB PO SCH (09:00)
--- NOTE | 2017-10-08 14:25 | EKG ---
Test Reason : Blood Pressure : / mmHG Vent. Rate : 103 BPM Atrial Rate : 141 BPM P-R Int : 000 ms QRS Dur : 072 ms QT Int : 390 ms P-R-T Axes : 000 021 -44 degrees QTc Int : 510 ms Atrial fibrillation with rapid ventricular response with premature ventricular or aberrantly conducte d complexes Nonspecific T wave abnormality , probably digitalis effect Abnormal ECG Confirmed by DREA PIERRE ([id number]), editor greeting card PARESH LUNSFORD ([id number]) on 10/08/2017 2:24:51 PM Referred By: Confirmed By:DREA PIERRE
== END 2017-10-06 16:54 | disposition home or self-care (01) | DRG 309 ==
LOC: ERS 10:04 → EEVIPCON 10:04 → 2NO 13:22
PROVIDERS: ADMIT Internal Medicine; ATTEND Internal Medicine
DX: I48.2 Chronic atrial fibrillation (principal); I50.42 Chronic combined systolic (congestive) and diastolic (congestive) heart failure; I42.9 Cardiomyopathy, unspecified; I11.0 Hypertensive heart disease with heart failure; J44.9 Chronic obstructive pulmonary disease, unspecified; E78.5 Hyperlipidemia, unspecified; Z79.01 Long term (current) use of anticoagulants; F17.210 Nicotine dependence, cigarettes, uncomplicated; F10.10 Alcohol abuse, uncomplicated; R00.1 Bradycardia, unspecified; Z79.82 Long term (current) use of aspirin; F41.9 Anxiety disorder, unspecified
CPT/HCPCS: 36415; 71045; 71046; 80048; 80053; 82553; 83880; 84484; 85025; 93005; 96361; 96365; 96376; J7050

== ENCOUNTER 2018-09-07 06:11 | Observation (INO) | payer MEDICARE, OTHER ==
[2018-09-06 11:29] VITALS: BMI 30.4
[2018-09-07] MEDS ORDERED: Heparin 10,000 UNITS/1 ML VIAL ONE ×2 (06:32→06:55)
[2018-09-07] MEDS ORDERED: Fentanyl 100 MCG/2 ML VIAL ONE ×2 (06:37→12:27)
[2018-09-07] MEDS ORDERED: Midazolam HCl 2 mg/2 ml Vial ONE (06:37)
[2018-09-07] MEDS ORDERED: Phenylephrine HCL 10 MG/ML VIAL ONE (06:38)
[2018-09-07] MEDS ORDERED: Lidocaine 4% Topical Sol 50 ML BOT ONE (06:38)
[2018-09-07] MEDS ORDERED: Protamine Sulfate 50 MG/5 ML VIAL ONE (06:56)
[2018-09-07] MEDS ORDERED: Furosemide 40 MG/4 ML VIAL ONE (06:56)
[2018-09-07 07:24] LABS: #Eosinphils 0.1 thou/uL (0.0-0.7); #Lymphocytes 1.7 thou/uL (1.20-3.40); #Monocytes 0.6 thou/uL (0.11-0.59); #Neutrophils 4.7 thou/uL (1.40-6.50); %Basophils 0.7 % (0.0-1.0); %Eosinophils 1.8 % (0.0-10.0); %Lymphocytes 23.5 % (21.0-51.0); %Monocytes 7.8 % (0.0-10.0); %Neutrophils 66.2 % (42.0-75.0); Hemoglobin 15.1 g/dL (14.0-18.0); Mean Corpuscular HGB CONC 33.1 g/dL (32.0-36.0); Mean Corpuscular Hemoglobin 32.1 pg (27.0-31.0); Mean Corpuscular Volume 97.1 fL (78.0-98.0); Mean Platelet Volume 7.6 fL (7.4-10.4); Platelet Count 178 thou/uL (130-400); RBC Distribution Width 12.1 % (11.5-14.5); White Blood Cell (WBC) Count 7.2 thou/uL (4.8-10.8)
[2018-09-07 07:32] LABS: INR-International Normal Ratio 1.2; Prothrombin Time 15.2 SEC (12.0-14.7)
[2018-09-07 07:33] LABS: PTT 42.4 SEC (22.9-36.1)
[2018-09-07 07:39] LABS: Anion Gap 12 mmol/L (10-20); BUN (Urea Nitrogen) 21 mg/dL (8.4-25.7); Calc. Creatinine Clearance 111 mL/min (70-130); Calcium 9.7 mg/dL (7.8-10.44); Carbon Dioxide 25 mmol/L (23-31); Chloride 106 mmol/L (98-107); Estimated GFR-MDRD Greater than 90; Glucose 104 mg/dL (83-110); Potassium 4.2 mmol/L (3.5-5.1); Sodium 139 mmol/L (136-145)
[2018-09-07] MEDS ORDERED: Isoproterenol 0.2 MG/1 ML AMP ONE (09:16)
--- NOTE | 2018-09-07 13:19 | EKG ---
Test Reason : PREOP Blood Pressure : / mmHG Vent. Rate : 058 BPM Atrial Rate : 058 BPM P-R Int : 156 ms QRS Dur : 084 ms QT Int : 448 ms P-R-T Axes : 046 015 001 degrees QTc Int : 439 ms Sinus bradycardia with occasional Premature ventricular complexes Nonspecific ST abnormality Abnormal ECG When compared with ECG of 05-OCT-2017 10:11, Sinus rhythm has replaced Atrial fibrillation Vent. rate has decreased BY 45 BPM Non-specific change in ST segment in Anterior leads Nonspecific T wave abnormality no longer evident in Anterolateral leads QT has shortened Confirmed by JOSE WILKES, SBehzad ([id number]) on 09/07/2018 1:18:27 PM Referred By: EVELINA Confirmed By:DR. Bill GARCIA MD
[2018-09-07] MEDS ORDERED: Rocuronium Bromide 10 MG/ML (10ML VIAL) ONE (17:06)
[2018-09-07] MEDS ORDERED: Ondansetron PF 4 MG/2 ML Vial ONE (17:06)
[2018-09-07] MEDS ORDERED: Lidocaine 1% PF 5 ML VIAL ONE (17:06)
[2018-09-07] MEDS ORDERED: PROPOFOL 200 MG/20 ML VIAL ONE (17:06)
[2018-09-07] MEDS ORDERED: Glycopyrrolate 0.2 MG/ML 5 ML SYRINGE ONE (17:06)
[2018-09-07] MEDS ORDERED: PHENYLEPHRINE-NS 100 MCG/ML 10 ML SYRINGE ONE (17:06)
[2018-09-07] MEDS ORDERED: Dexamethasone 20 MG/5 ML VIAL ONE (17:06)
--- NOTE | 2018-09-07 17:10 | EKG ---
Test Reason : POST ABLATION Blood Pressure : / mmHG Vent. Rate : 068 BPM Atrial Rate : 068 BPM P-R Int : 162 ms QRS Dur : 094 ms QT Int : 424 ms P-R-T Axes : 059 018 036 degrees QTc Int : 450 ms Normal sinus rhythm Normal ECG When compared with ECG of 07-SEP-2018 08:03, (Unconfirmed) Premature ventricular complexes are no longer Present ST no longer depressed in Inferior leads Confirmed by JOSE WILKES, SBehzad ([id number]) on 09/07/2018 5:09:49 PM Referred By: EVELINA Confirmed By:DR. Bill GARCIA MD
[2018-09-07] MEDS: Carvedilol 3.125 MG TAB PO SCH (18:05)
[2018-09-07] MEDS: Nicotine 14 MG PATCH TOP SCH (18:05)
--- NOTE | 2018-09-07 18:15 | OP ---
DATE OF PROCEDURE: 09/07/2018 PROCEDURES PERFORMED: 1. Comprehensive EP testing including mapping and ablation of atrial fibrillation. 2. Intracardiac echocardiography. 3. Cardiac medication infusion. CLINICAL INDICATION: Drug refractory paroxysmal atrial fibrillation. ASA CLASSIFICATION: 3. ANESTHESIA: General endotracheal anesthesia per Anesthesiology. ADDITIONAL CARDIAC MEDICATIONS: Isoproterenol 10 mcg/min infusion. Total heparin given, 14,000 units. Total protamine given 40 mg. ACUTE COMPLICATIONS: None apparent. TOTAL RF TIME: 24 minutes and 37 seconds. TOTAL FLUORO TIME: Zero. METHODS: After informed consent was obtained, the patient was taken to the EP lab in a fasting state. Both groins were prepped and draped using ultrasound guidance. Right and left femoral veins were accessed and wires inserted into the central venous system and wire was used to place 11 and 8-Telugu sheath in the left groin and two 8-Telugu sheaths in the right groin. All 8-Telugu sheaths were then replaced by long sheaths for catheter stability. A circular ablation catheter was placed on the right groin, advanced to the right atrium and 3D map was obtained to the right atrium and the coronary artery sinus. A 24 catheter was placed on the left groin, advanced to the coronary artery sinus and an echocardiogram probe was placed in the left groin and advanced up to the right atrium and the right ventricle for imaging. The patient was then fully anticoagulated, transseptal catheterization was performed on two occasions. An esophageal temperature probe was placed in the esophagus co-located with a location sensor, which could be visualized in a 3D mapping system. A 3D map was obtained of the left atrium and the appendage ablation was delivered, isolating all 4 pulmonary veins and the posterior wall of left atrium after an observation period and with Isoproterenol challenge, no other arrhythmias were seen. Catheters were then removed, sheaths were pulled, hemostasis was achieved with collagen closure. RESULTS: 1. Baseline intervals, HV interval 57 milliseconds. The patient was in sinus rhythm at the beginning of the procedure. 2. AV angeles was less than 500 milliseconds from pacing from the left atrium, there was no VA conduction seen. 3. Ablation details, a total of 24 minutes and 37 seconds of RF delivered with a [employer] open irrigated ablation catheter. IMPRESSION: Successful pulmonary vein antral isolation with posterior wall isolation. RECOMMENDATION: Oral anticoagulation for 3 months. Job ID: [id number]
[2018-09-07] MEDS: Apixaban 5 MG TAB PO SCH (20:13)
[2018-09-07] MEDS ORDERED: Rosuvastatin 10 MG TAB PO SCH (21:00)
[2018-09-08 04:16] VITALS: TEMP 98.5
[2018-09-08] MEDS ORDERED: Spironolactone 25 MG TAB PO SCH (08:00)
[2018-09-08 08:15] VITALS: BP 131/70
[2018-09-08] MEDS ORDERED: Aspirin 81 mg Enteric Coated Tablet PO SCH (09:00)
[2018-09-08] MEDS ORDERED: Lisinopril 10 MG TAB PO SCH (09:00)
[2018-09-08] MEDS ORDERED: Tamsulosin HCl 0.4 MG CAP PO SCH (09:00)
[2018-09-08] MEDS: Carvedilol 3.125 MG TAB PO SCH (09:21)
[2018-09-08] MEDS: Apixaban 5 MG TAB PO SCH (09:21)
[2018-09-08] MEDS: Nicotine 14 MG PATCH TOP SCH (12:47)
--- NOTE | 2018-09-08 12:48 | DIS ---
DATE OF ADMISSION: 09/07/2018 DATE OF DISCHARGE: 09/08/2018 SURGEON: Osman Gamble MD DIAGNOSIS: Paroxysmal drug refractory atrial fibrillation. PROCEDURES PERFORMED: Comprehensive EP testing with mapping and ablation of atrial fibrillation, intracardiac echocardiography, cardiac medication infusion. SUBJECTIVE: The patient is a 72-year-old gentleman with a history of atrial fibrillation, paroxysmal, but recurring and refractory to amiodarone. He was referred to consider ablative therapy by his telephone information clerk, Dr. Jeovanny Encarnacion, and it was decided to move forward with an ablation. He was admitted the day prior and underwent EP study and ablation with Dr. Gamble. This is successful PVAI with posterior wall isolation. AV angeles conduction was less than 500 milliseconds that pacing from the left atrium with no VA conduction seen. He received a total of 24 minutes and 37 seconds of RF energy delivered. No complications were seen, postablation recommendations were continued, oral anticoagulation for 3 months. The patient is feeling well this morning. He does not have any cardiac concerns or complaints. He denies heart racing, palpitations, chest pain, pressure, syncope, near syncope, stroke, stroke-like symptoms, difficulty urinating, nausea, vomiting, diarrhea, or bleeding complications at the groin site. REVIEW OF SYSTEMS: An 8-point review of systems is conducted and is negative except that listed in HPI. OBJECTIVE: VITAL SIGNS: Temperature 98.5, blood pressure 131/70, respirations 20, oxygenation is 94% on room air, and pulse is 58. GENERAL: The patient is alert and oriented. Speech is clear. Affect is appropriate. NECK: Supple without jugular venous distention. LUNGS: Clear to auscultation bilaterally with respirations even and unlabored. HEART: Rate is irregularly irregular without murmur, rub, or gallop. ABDOMEN: Soft and nontender. Hepatojugular reflux is negative. EXTREMITIES: Warm and dry to touch without clubbing, cyanosis, or edema. Bilateral groin sites are stable. Dressing is clean, dry, and intact. No signs of bleeding complications. No palpable hematomas. DATABASE: EKG and telemetry reflect sinus rhythm at a rate of 60 to 70 beats per minute. CONDITION AT DISCHARGE: Stable. DISCHARGE INSTRUCTIONS: Continue Eliquis for 3 months postablation. Prescriptions were provided for postablative therapy with Protonix, Carafate as well as p.r.n. Lasix and potassium chloride. Contact [facility] with any postablation concerns and follow up in [address] Gamble or Dr. Hoffman. DISCHARGE MEDICATIONS: 1. Spironolactone 12.5 mg p.o. q.a.m. 2. Rosuvastatin 10 mg p.o. daily. 3. Aspirin 81 mg daily. 4. Lisinopril 10 mg daily. 5. Carvedilol 3.125 mg p.o. b.i.d. 6. Apixaban 5 mg p.o. b.i.d. 7. Tamsulosin 0.4 mg daily. 8. Nicotine patch as directed. New prescriptions called in include: 1. Sucralfate 1 g p.o. q.i.d. 2. Potassium chloride 20 mEq p.o. p.r.n. to be taken if taking Lasix. 3. Lasix 40 mg p.o. p.r.n. shortness of breath and swelling of the extremities. 4. Protonix 40 mg daily x30 days. Job ID: [id number] [facility]
== END 2018-09-08 12:08 | disposition home or self-care (01) ==
LOC: CCL 06:11 → 2SW 15:24 → SCSEROBS 09-08 07:43 → 2SW 09-08 07:45 → ERHOLD 09-08 07:47 → 2SW 09-08 07:48
PROVIDERS: ADMIT Internal Medicine Cardiovascular Disease; ATTEND Internal Medicine Cardiovascular Disease
PROC: 02583ZZ Destruction of Conduction Mechanism, Percutaneous Approach (ICD-10-PCS; principal; 2018-09-07)
PROC: 02K83ZZ Map Conduction Mechanism, Percutaneous Approach (ICD-10-PCS; 2018-09-07)
PROC: 4A023FZ Measurement of Cardiac Rhythm, Percutaneous Approach (ICD-10-PCS; 2018-09-07)
PROC: 4A0234Z Measurement of Cardiac Electrical Activity, Percutaneous Approach (ICD-10-PCS; 2018-09-07)
DX: I48.0 Paroxysmal atrial fibrillation (principal); Z79.01 Long term (current) use of anticoagulants; Z79.82 Long term (current) use of aspirin; Z79.899 Other long term (current) drug therapy
CPT/HCPCS: 76942; 80048; 85025; 85347 ×2; 85610; 85730; 93005 ×2; 93613; 93623; 93655; 93656; 93662; C1731; C1732 ×3; C1759; C1769; G0378; 93010; J1100; J1644; J1940; J2001; J2250; J2370; J2405; J2704; J2720; J3010

== ENCOUNTER 2020-01-04 07:40 | Outpatient (CLI) | payer MEDICARE, OTHER ==
--- NOTE | 2020-01-04 08:07 | ULT ---
Exam: Screening ultrasound for abdominal aortic aneurysm COMPARISON: None TECHNIQUE: Grayscale, color flow, Doppler imaging and spectral waveform analysis performed the aorta FINDINGS: Proximal aorta 2.2 x 2.3 x 1.8 cm Mid aorta 2.0 x 2.0 x 2.6 cm Distal aorta 1.4 x 2.1 x 1.6 cm Limited evaluation of the left and right iliac arteries which appear to be approximately 1 cm IMPRESSION: No sonographic evidence of aneurysm in the visualized abdominal aorta
== END 2020-01-04 07:41 | disposition home or self-care (01) ==
LOC: BICULT 07:40
PROVIDERS: ATTEND Nurse Practitioner Family
DX: Z13.6 Encounter for screening for cardiovascular disorders (principal)
CPT/HCPCS: 76706

== ENCOUNTER 2022-01-26 09:10 | Outpatient (CLI) | payer MEDICARE, OTHER | END 2022-01-26 09:11 | disposition home or self-care (01) | LOC: BICCT 09:10 | PROVIDERS: ATTEND Nurse Practitioner Family | DX: Z12.2 Encounter for screening for malignant neoplasm of respiratory organs (principal); F17.210 Nicotine dependence, cigarettes, uncomplicated; N28.89 Other specified disorders of kidney and ureter | CPT/HCPCS: 71271 ==

== ENCOUNTER 2022-02-09 08:46 | Outpatient (CLI) | payer MEDICARE, OTHER ==
[~2022-02-09 08:46] MED LIST: Iopamidol 370 76% 100 ML VIAL ONE
== END 2022-02-09 08:47 | disposition home or self-care (01) ==
LOC: BICCT 08:46
PROVIDERS: ATTEND Nurse Practitioner Family
DX: N28.89 Other specified disorders of kidney and ureter (principal); E27.8 Other specified disorders of adrenal gland; K57.30 Diverticulosis of large intestine without perforation or abscess without bleeding; I70.0 Atherosclerosis of aorta; R93.422 Abnormal radiologic findings on diagnostic imaging of left kidney; I70.8 Atherosclerosis of other arteries
CPT/HCPCS: 74170; Q9967

== ENCOUNTER 2022-09-27 09:41 | Outpatient (CLI) | payer MEDICARE, OTHER | END 2022-09-27 09:42 | disposition home or self-care (01) | LOC: BICULT 09:41 → ULT 09:42 | PROVIDERS: ATTEND Nurse Practitioner Family | DX: N28.89 Other specified disorders of kidney and ureter (principal); Q63.1 Lobulated, fused and horseshoe kidney | CPT/HCPCS: 76770 ==

== ENCOUNTER 2023-04-27 07:52 | Outpatient (CLI) | payer MEDICARE, OTHER ==
[2023-04-27] MEDS ORDERED: Iopamidol 370 76% 100 ML VIAL ONE (09:11)
== END 2023-04-27 07:53 | disposition home or self-care (01) ==
LOC: CT 07:52
PROVIDERS: ATTEND Nurse Practitioner Family
DX: N28.89 Other specified disorders of kidney and ureter (principal)
CPT/HCPCS: 74178; 82565; Q9967

== ENCOUNTER 2024-02-17 09:27 | Outpatient (CLI) | payer MEDICARE, OTHER | END 2024-02-17 09:28 | disposition home or self-care (01) | LOC: BICMAMMO 09:27 | PROVIDERS: ATTEND Nurse Practitioner Family | DX: Z13.820 Encounter for screening for osteoporosis (principal); M85.851 Other specified disorders of bone density and structure, right thigh; M85.852 Other specified disorders of bone density and structure, left thigh | CPT/HCPCS: 77080 ==